=== PATIENT | female | born 1995 | race Caucasian/White ===

== ENCOUNTER 2017-12-31 01:57 | Observation (INO) ==
[2017-12-31] MEDS ORDERED: Isovue-370 500 ML INFUS..BTL IV ONE (02:12)
[2017-12-31] MEDS ORDERED: 0.9 % Sodium Chloride 1,000 ML IVC ONE (02:16)
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
[2017-12-31 05:00] LABS: Basophils # 0.1 K/mcL (0.0-0.2); Basophils % 0.4 %; Eosinophils # 0.2 K/mcL (0.0-0.6); Eosinophils % 1.4 %; Hematocrit 40.2 % (35.3-44.9); Hemoglobin 14.3 g/dL (11.5-15.4); Immature Granulocytes % 0.4 % (0-4); Lymphocytes # 1.8 K/mcL (0.6-4.6); Lymphocytes % 15.9 %; Mean Corpuscular HGB Conc 35.6 g/dL (31.6-35.5); Mean Corpuscular Volume 89.9 fL (83.0-100.0); Mean Platelet Volume 10.7 fL (9.4-12.4); Monocytes # 0.9 K/mcL (0.0-1.3); Monocytes % 7.8 %; Neutrophils # 8.4 K/mcL (1.6-8.9); Platelet Count 283 K/mcL (140-400); Red Blood Count 4.47 M/mcL (3.82-4.97); Red Cell Distribution Width 12.6 % (11.5-14.5); Segmented Neutrophils % 74.1 %
[2017-12-31 05:18] LABS: BUN/Creatinine Ratio 19 (6-26); Blood Urea Nitrogen 11 mg/dL (6-20); Calcium 9.4 mg/dL (8.6-10.3); Carbon Dioxide 24 mEq/L (23-29); Chloride 106 mEq/L (98-107); Glucose 116 mg/dL (70-105); Osmolality,Calculated 284 (280-300); Potassium 3.3 mEq/L (3.5-5.1); Sodium 137 mEq/L (136-145); eGFR For Non-African Americans > 60 (> 60)
[2017-12-31] MEDS ORDERED: Lidocaine -MPF 4% 5 ML AMPUL INFILT ONE (05:24)
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
[2017-12-31] MEDS ORDERED: *HR* LORazepam 2 MG/ML VIAL IVP STA (06:27)
[2017-12-31] MEDS ORDERED: *HR* LORazepam 2 MG/ML VIAL ONE (06:32)
[2017-12-31] MEDS ORDERED: Acetaminophen 325 MG TABLET PO PRN (06:37)
[2017-12-31] MEDS ORDERED: Naloxone 0.4 MG/ML INJ IVP PRN (06:37)
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
[2017-12-31 12:00] LABS: Bilirubin,Urine Negative (Negative); Blood,Urine Moderate (Negative); Color,Urine Yellow (Yellow); Glucose,Urine (UA) Normal (Normal); Ketones,Urine Trace mg/dL (Negative); Leukocyte Esterase,Urine Moderate (Negative); Nitrite,Urine Positive (Negative); Protein,Urine 30 mg/dL (Neg-Trace); Specific Gravity,Urine > 1.030 (1.010-1.025); Urobilinogen,Urine Normal (Normal)
[2017-12-31 12:03] LABS: Bacteria,Urine Moderate per hpf (None-Few); Hyaline Casts,Urine None Seen per lpf (None-Few); Squamous Epithelial Cell,Urine Many per lpf (None-Few); WBC,Urine TNTC per hpf (0-3)
[2017-12-31 12:07] LABS: Clarity,Urine Hazy (Clear)
[2017-12-31 12:20] LABS: Amphetamine Screen,Urine Positive ng/mL (Cutoff=1000); Barbiturate Screen,Urine Negative ng/mL (Cutoff=200); Benzodiazepines Screen,Urine Negative ng/mL (Cutoff=200); Cannabinoid Screen,Urine Positive ng/mL (Cutoff = 50); Cocaine Screen,Urine Negative ng/mL (Cutoff= 300); Opiate Screen,Urine Negative ng/mL (Cutoff=300); Phencyclidine Screen,Urine Negative ng/mL (Cutoff=25)
[2017-12-31] MEDS: *HR* LORazepam 2 MG/ML VIAL IVP PRN ×2 (12:45→21:19)
[2017-12-31] MEDS: 0.9 % Sodium Chloride 1,000 ML IVC SCH (12:45)
[2017-12-31] MEDS ORDERED: Ketorolac 15 MG/ML VIAL IVP ONE (12:55)
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
[2017-12-31] MEDS ORDERED: Potassium Chloride 40 MEQ, Lidocaine 1% 2 ML in D5% in Water 500 ML IVPB ONE (14:36)
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
[2017-12-31] MEDS: cefTRIAXone 1,000 MG in Water for inj. (sterile) 20 ML 10 ML IVP SCH (17:17)
[2018-01-01] MEDS: 0.9 % Sodium Chloride 1,000 ML IVC SCH ×3 (03:11→20:52)
[2018-01-01 05:14] LABS: Basophils % 0.5 %; Eosinophils # 0.4 K/mcL (0.0-0.6); Eosinophils % 4.6 %; Hematocrit 37.6 % (35.3-44.9); Immature Granulocytes % 0.2 % (0-4); Lymphocytes # 2.1 K/mcL (0.6-4.6); Lymphocytes % 25.4 %; Mean Corpuscular HGB Conc 33.8 g/dL (31.6-35.5); Mean Corpuscular Hemoglobin 30.8 pg (28.0-33.3); Mean Platelet Volume 10.6 fL (9.4-12.4); Monocytes # 0.8 K/mcL (0.0-1.3); Monocytes % 9.2 %; Neutrophils # 4.9 K/mcL (1.6-8.9); Platelet Count 270 K/mcL (140-400); Red Blood Count 4.13 M/mcL (3.82-4.97); Segmented Neutrophils % 60.1 %
[2018-01-01 05:21] LABS: Hemoglobin 12.7 g/dL (11.5-15.4)
[2018-01-01 05:31] LABS: BUN/Creatinine Ratio 18 (6-26); Blood Urea Nitrogen 9 mg/dL (6-20); Carbon Dioxide 20 mEq/L (23-29); Chloride 109 mEq/L (98-107); Glucose 79 mg/dL (70-105); Osmolality,Calculated 284 (280-300); Potassium 3.8 mEq/L (3.5-5.1); Sodium 138 mEq/L (136-145); eGFR For Non-African Americans > 60 (> 60)
--- NOTE | 2018-01-01 07:27 | Cardiothoracic Progress Note ---
Date of Encounter: 01/01/18 Time of Encounter: 07:25 - Assessment and plan (1) Pneumomediastinum Current Visit: Yes Status: Acute The patient remains nothing by mouth. I would favor esophagoscopy to rule out an esophageal lesion. If this is not done, she could be fed and if she remains stable discharged. White blood cell count is down to 8100. A chest x-ray is ordered for today. - Subjective Interval history: The patient complains of mild upper back pain. Vital Signs, Last 4 Hours Temp Pulse Resp BP Pulse Ox 01/01/18 04:00 97.7 F 70 17 107/74 96 Clinical Data, last 8 Hours Output, Urine Amount 200 Output, Urine Amount 200 Weight 12/30/17 12/31/17 01/01/18 23:59 23:59 23:59 Weight 53.3 kg 53.2 kg Lungs are clear to percussion and auscultation. Heart is in a normal sinus rhythm. - Labs 01/01/18 04:41 01/01/18 04:41 Lab Results, Last 24 hours 01/01/18 01/01/18 01/01/18 04:41 04:41 04:41 WBC 8.1 Hgb 12.7 D Hct 37.6 Plt Count 270 Sodium 138 Potassium 3.8 Chloride 109 H Carbon Dioxide 20 L BUN 9 Creatinine 0.49 L Glucose 79 Calcium 9.0 Magnesium 1.9 - VTE Reasons for not Prescribing Prophylaxis: Treatment not Indicated - Low risk for VTE Documentation of Mechanical Device: Intermittent pneumatic compression device Consult Discharge Plan - Plan Referrals: NONE,PCP [Primary Care Provider] -
[2018-01-01] MEDS: *HR* LORazepam 2 MG/ML VIAL IVP PRN ×2 (09:48→16:36)
[2018-01-01] MEDS: Gabapentin 300 MG CAPSULE PO SCH ×3 (09:48→20:49)
[2018-01-01] MEDS: diazePAM 2 MG TABLET PO PRN (13:37)
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
[2018-01-01] MEDS ORDERED: *HR* LORazepam 2 MG/ML VIAL IM STA (18:30)
[2018-01-01] MEDS ORDERED: *HR* LORazepam 2 MG/ML VIAL ONE (18:32)
[2018-01-01] MEDS: cefTRIAXone 1,000 MG in Water for inj. (sterile) 20 ML 10 ML IVP SCH (20:51)
[2018-01-01] MEDS ORDERED: risperiDONE 1 MG TABLET PO SCH (21:00)
[2018-01-01] MEDS ORDERED: Naloxone 0.4 MG/ML INJ IM PRN (21:04)
[2018-01-01] MEDS ORDERED: *HR* LORazepam 2 MG/ML VIAL IM PRN (21:05)
--- NOTE | 2018-01-01 23:25 | Event Note ---
Date of Encounter: 01/01/18 Time of Encounter: 20:07 Alerted by patient's nurse EVE Jaing that patient's IV access had been discontinued due to plan to discharge patient today. However, patient began exhibiting behavioral changes prior to discharge which required pink-slipping the patient. Patient was extremely agitated at shift change. Concern for need to calm patient quickly if she became agitated severely again. IV and IVP medications converted to by mouth and IM medications, including patient's antibiotic being converted from ceftriaxone IVPB to by mouth ciprofloxacin which was part of pts. discharge plan. Patient to be monitored closely overnight for signs of increasing agitation.
[2018-01-02] MEDS: diazePAM 2 MG TABLET PO PRN ×2 (05:41→12:12)
[2018-01-02] MEDS: Gabapentin 300 MG CAPSULE PO SCH ×2 (09:21→14:29)
--- NOTE | 2018-01-02 09:32 | Cardiothoracic Progress Note ---
Date of Encounter: 01/02/18 Time of Encounter: 09:30 - Assessment and plan (1) Pneumomediastinum Current Visit: Yes Status: Acute The patient is breathing comfortably and eating without difficulty. The chest x -ray yesterday progressive resolution of the pneumomediastinum. The ENT endoscopy revealed no tracheal injury. The patient may be discharged home at the discretion of the hospitalist service. The assessment and plan as outlined above was discussed with the patient and/or family members who expressed understanding and agreement. All questions were answered. - Subjective Interval history: The patient remained hemodynamic stable overnight. She is breathing comfortably and was able to eat dinner without swallowing difficulty. Vital Signs, Last 4 Hours Temp Pulse Resp BP Pulse Ox 01/02/18 07:00 98.5 F 65 14 98/69 98 Clinical Data, last 8 Hours Output, Urine Amount 0 Weight 12/31/17 01/01/18 01/02/18 23:59 23:59 23:59 Weight 53.3 kg 53.2 kg - Physical Examination General: Conversant, No Apparent Distress Neck: No JVD, Normal carotid pulses Cardiac: Reg Rate and Rhythm, Normal S1 and S2, No Murmur Lungs: Normal Breath Sounds, No Wheeze, Rales, Rhonchi Neuro: Alert and responsive, No focal deficits noted Vascular: Normal capillary refill Extremities: No Clubbing, No Cyanosis, No Edema - Labs 01/01/18 04:41 01/01/18 04:41 - VTE Reasons for not Prescribing Prophylaxis: Treatment not Indicated - Low risk for VTE Documentation of Mechanical Device: Intermittent pneumatic compression device Consult Discharge Plan - Plan Referrals: Nelia Doyle MD [Non-Partnered Physician] - 01/09/18 5:00 pm Prescriptions: Ciprofloxacin HCl [Cipro] 500 mg PO BID #8 tablet
[2018-01-02 10:56] VITALS: BP 122/76
--- NOTE | 2018-01-02 17:21 | Event Note ---
Date of Encounter: 01/02/18 Time of Encounter: 17:19 Patient seen and examined. No acute distress, no suicidal thoughts. Denies chest pain, shortness of breath. She is in no acute distress. Breath sounds clear, cardiac exam unremarkable. Psychiatry saw patient today and per nursing reports, she is clear for discharge.
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
== END 2018-01-02 20:29 | disposition home or self-care (01) ==
LOC: 2NENU 01:57 → EMEROO 01:57 → 2NENU 06:37
PROVIDERS: ADMIT Family Medicine; ATTEND Family Medicine